=== PATIENT | female | born 1985 | race Two or more races ===

== ENCOUNTER 2018-09-25 09:28 | Emergency (ER) | payer MEDICAID ==
[~2018-09-25] VITALS: Ht 165.1 cm; Wt 68.0 kg
[2018-09-25 10:15] VITALS: BP 143/98
== END 2018-09-25 14:25 | disposition home or self-care (01) ==
LOC: ER 09:28
DX: M25.511 Pain in right shoulder (principal); F17.210 Nicotine dependence, cigarettes, uncomplicated; Z76.0 Encounter for issue of repeat prescription; Z88.6 Allergy status to analgesic agent

== ENCOUNTER 2018-10-04 08:50 | Emergency (ER) | payer MEDICAID ==
[~2018-10-04] VITALS: Ht 165.1 cm; Wt 86.2 kg
[2018-10-04 08:56] VITALS: BP 144/84
[2018-10-04] MEDS ORDERED: KETOROLAC TROMETH 60MG/2ML VIAL IM ONE (09:45)
== END 2018-10-04 10:21 | disposition home or self-care (01) ==
LOC: ER 08:50
DX: M75.101 Unspecified rotator cuff tear or rupture of right shoulder, not specified as traumatic (principal); F17.210 Nicotine dependence, cigarettes, uncomplicated; Z76.0 Encounter for issue of repeat prescription; Z88.6 Allergy status to analgesic agent
CPT/HCPCS: 96372; 99283; J1885

== ENCOUNTER 2018-11-18 11:21 | Emergency (ER) | payer MEDICAID ==
[~2018-11-18] VITALS: Ht 165.1 cm; Wt 83.9 kg
[2018-11-18 11:35] VITALS: BP 132/96
== END 2018-11-18 12:08 | disposition home or self-care (01) ==
LOC: ER 11:26
DX: F20.9 Schizophrenia, unspecified (principal); F17.210 Nicotine dependence, cigarettes, uncomplicated; Z88.6 Allergy status to analgesic agent; Z76.0 Encounter for issue of repeat prescription

== ENCOUNTER 2018-11-29 17:19 | Emergency (ER) | payer MEDICAID ==
[~2018-11-29] VITALS: Ht 165.1 cm; Wt 83.9 kg
[2018-11-29 18:54] VITALS: BP 149/90
[2018-11-29] MEDS ORDERED: DexAMETHasone SOD PHOS 10MG/1ML VIAL INJ IM ONE (19:00)
[2018-11-29] MEDS ORDERED: HYDROcodone-ACET 5/325MG TAB PO ONE (19:00)
== END 2018-11-29 19:25 | disposition home or self-care (01) ==
LOC: ER 17:19
DX: J30.9 Allergic rhinitis, unspecified (principal); J06.9 Acute upper respiratory infection, unspecified; F17.210 Nicotine dependence, cigarettes, uncomplicated; Z88.8 Allergy status to other drugs, medicaments and biological substances
CPT/HCPCS: 96372; 99283; J1100

== ENCOUNTER 2019-01-13 14:42 | Emergency (ER) | payer MEDICAID ==
[~2019-01-13] VITALS: Ht 165.1 cm; Wt 90.7 kg
[2019-01-13 16:12] VITALS: BP 122/8
== END 2019-01-13 18:02 | disposition home or self-care (01) ==
LOC: ER 14:47
DX: S43.421A Sprain of right rotator cuff capsule, initial encounter (principal); F17.210 Nicotine dependence, cigarettes, uncomplicated; X58.XXXA Exposure to other specified factors, initial encounter; Y93.89 Activity, other specified; Y99.8 Other external cause status; Y92.89 Other specified places as the place of occurrence of the external cause

== ENCOUNTER 2020-03-25 10:27 | Emergency (ER) | payer MEDICAID ==
[~2020-03-25] VITALS: Ht 165.1 cm; Wt 89.8 kg
[2020-03-25 10:38] VITALS: BP 112/68
== END 2020-03-25 11:04 | disposition home or self-care (01) ==
LOC: ER 10:27
DX: S61.411D Laceration without foreign body of right hand, subsequent encounter (principal); X58.XXXD Exposure to other specified factors, subsequent encounter

== ENCOUNTER 2022-04-02 06:55 | Emergency (ER) | payer MEDICAID, OTHER ==
[~2022-04-02] VITALS: Ht 165.1 cm; Wt 90.9 kg
[2022-04-02 06:55] VITALS: BP 148/90
[2022-04-02 12:13] LABS: Amphetamine Screen, Urine POSITIVE (NEGATIVE); Barbiturate Scree,Urine NEGATIVE (NEGATIVE); Benzodiazephine Screen, Urine NEGATIVE (NEGATIVE); Cannabinoid Screen, Urine POSITIVE (NEGATIVE); Cocaine Screen, Urine NEGATIVE (NEGATIVE); Opiate Scree,Urine NEGATIVE (NEGATIVE); Phencyclidine Screen, Urine NEGATIVE (NEGATIVE)
== END 2022-04-02 15:30 | disposition left against medical advice (07) ==
LOC: EDBD 06:55 → EDUNIT# 06:55 → ER 06:55
DX: F41.9 Anxiety disorder, unspecified (principal); F10.10 Alcohol abuse, uncomplicated; Y90.3 Blood alcohol level of 60-79 mg/100 ml; Z79.1 Long term (current) use of non-steroidal anti-inflammatories (NSAID)
CPT/HCPCS: 36415; 80307; 80320

== ENCOUNTER 2023-08-16 15:02 | Emergency (ER) | payer MEDICAID ==
[~2023-08-16] VITALS: Ht 165.1 cm; Wt 91.0 kg
[2023-08-16 16:01] LABS: Urine Bacteria None Seen /hpf (None Seen)
[2023-08-16] MEDS: IPRATROPIUM BROM 0.5 MG/2.5ML INH SOL NEB ONE (16:19)
[2023-08-16] MEDS: ALBUTEROL SULF 2.5 MG/0.5ML(0.5%) NEB SOLN NEB ONE (16:19)
[2023-08-16 16:26] LABS: Urine Blood 1+ /uL (Negative); Urine Clarity Clear (Clear); Urine Color Yellow (Yellow); Urine Mucus FEW (None Seen); Urine Protein, UAD TRACE (Negative); Urine Specific Gravity 1.036 (1.001-1.035); Urine Urobilinogen Normal (Negative); Urine WBC 6 /hpf (0 - 5)
[2023-08-16 16:47] LABS: Basophils # (auto) 0.1 10 ^3/uL (0-0.2); Basophils % (auto) 0.7 % (0.0-2.0); Eosinophils # (auto) 0.2 10 ^3/uL (0-0.8); Hemoglobin 12.9 g/dL (12.2-16.2); Lymphocytes # (auto) 2.7 10 ^3/uL (0.4-5.4); Lymphocytes % (auto) 24.7 % (10.0-50.0); Mean Corpuscular Hemoglobin 29.1 pg (28.0-32.0); Mean Corpuscular Volume 85.4 fL (80.0-100.0); Monocytes # (auto) 0.7 10 ^3/uL (0-1.3); Monocytes % (auto) 6.5 % (0.0-12.0); Neutrophils # (auto) 7.2 10 ^3/uL (1.6-8.6); Neutrophils % (auto) 66.1 % (37.0-80.0); Red Blood Cells 4.44 10^6/uL (4.0-5.20); Red Cell Distribution Width 12.9 % (11.8-14.3); White Blood Cell 10.9 10^3/uL (4.4-10.8)
[2023-08-16] MEDS: ALPRAZolam 0.5 MG TAB PO ONE (17:05)
[2023-08-16] MEDS: DexAMETHasone SOD PHOS 10MG/1ML VIAL INJ IM ONE (17:05)
[2023-08-16 17:06] LABS: Alanine Aminotransferase 19 U/L (7-40); Albumin 4.3 g/dL (3.2-4.8); Alkaline Phosphatase 89 U/L (46-116); Anion Gap 11 (5-15); Aspartate Aminotransferase 22 U/L (13-40); BUN/Creatinine Ratio 15.5 (10.0-20.0); Bilirubin, Total 0.3 mg/dL (0.2-1.0); Blood Urea Nitrogen 13 mg/dL (9-23); Calcium 9.8 mg/dL (8.5-10.1); Carbon Dioxide 22 mmol/L (20-30); Chloride 109 mmol/L (98-107); Glucose 113 mg/dL (74-106); Sodium 142 mmol/L (136-145); Total Protein 6.4 g/dL (5.7-8.2)
[2023-08-16 17:13] VITALS: BP 128/77; PULSE 81; RESP 16; TEMP 97.9; O2SAT 99
[2023-08-16 17:14] LABS: CRP High Sensitivity 1.61 mg/dL (<1.0)
[2023-08-16] MEDS ORDERED: ALPR1TAB2 PO (18:05)
[2023-08-16] MEDS ORDERED: LORA10CA PO (18:59)
== END 2023-08-16 19:00 | disposition home or self-care (01) ==
LOC: ER 15:02
DX: F41.9 Anxiety disorder, unspecified (principal); R06.02 Shortness of breath; Z32.02 Encounter for pregnancy test, result negative; Z88.6 Allergy status to analgesic agent
CPT/HCPCS: 36415; 71046; 80053; 81001; 81025; 83880; 85025; 86141; 94640; 96372; 99284; J1100; J7644

== ENCOUNTER 2024-09-18 18:15 | Emergency (ER) | payer MEDICAID ==
[~2024-09-18] VITALS: Ht 165.1 cm; Wt 109.2 kg
[~2024-09-18 18:15] MED LIST: ALPR1TAB2 PO; LORA10CA PO
[2024-09-18 19:50] VITALS: TEMP 98.2
--- NOTE | 2024-09-18 20:27 | ED.PDOC ---
Back pain HPI HPI Comments PT CAME IN WITH A CC OF LEFT WRIST AND NECK PAIN S/P MECHANICAL FALL X 3 DAYS AGO WHILE WALKING OUTSIDE. PT DENEIS LOC, ABLE TO PICK SELF UP. POSITIVE PULSES PRESENT BILATERALLY. NO BUMPS BRUISES OR ABBRASIONS NOTED.. DENIES NUMBNESS, WEAKNESS, OR ANY OTHER KNOWN INJURY. 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 Family History Family History: Unobtainable Social History Smoker: Unobtainable Alcohol: Unobtainable Drugs: Unobtainable Lives In: Unobtainable Constitutional: denies: chills, diaphoresis, fatigue, fever, malaise, sweats, weakness, others EENTM: denies: blurred vision, double vision, ear bleeding, ear discharge, ear drainage, ear pain, ear ringing, eye pain, eye redness, hearing loss, mouth pain, mouth swelling, nasal discharge, nose bleeding, nose congestion, nose pain, photophobia, tearing, throat pain, throat swelling, voice changes, others Respiratory: denies: cough, hemoptysis, orthopnea, SOB at rest, shortness of breath, SOB with excertion, stridor, wheezing, others Cardiovascular: denies: chest pain, dizzy spells, diaphoresis, Dyspnea on exertion, edema, irregular heart beat, left arm pain, lightheadedness, palpitations, PND, syncope, others Gastrointestinal: denies: abdomen distended, abdominal pain, blood streaked bowels, constipated, diarrhea, dysphagia, difficulty swallowing, hematemesis, melena, nausea, poor appetite, poor fluid intake, rectal bleeding, rectal pain, vomiting, others Genitourinary: denies: abnormal vagina bleeding, burning, dyspareunia, dysuria, flank pain, frequency, hematuria, incontinence, pain, , vagina discharge, urgency, others Neurological: denies: dizziness, fainting, headache, left sided numbness, left sided weakness, numbness, paresthesia, pre-existing deficit, right sided numb ness, right sided weakness, seizure, speech problems, tingling, tremors, weakness, others Musculoskeletal: reports: joint pain, joint swelling, neck pain; denies: back pain, gout, muscle pain, muscle stiffness, others Integumetry: reports: bruises; denies: change in color, change in hair/nails, dryness, laceration, lesions, lumps, rash, wounds, others Allergic/Immunocompromised: denies: Difficulty Healing, Frequent Infections, Hives, Itching, others Hematologic/Lymphatic: denies: anemia, blood clots, easy bleeding, easy bruising, swollen glands, others Endocrine: denies: excessive hunger, excessive sweating, excessive thirst, excessive urination, flushing, intolerance to cold, intolerance to heat, unexplained weight gain, unexplained weight loss, others Psychiatric: denies: anxiety, bipolar disorder, depression, hopeless, panic disorder, schizophrenia, sleepless, suicidal, others Physical Exam General Appearance: No Apparent Distress, Normal HEENT: Pharynx Normal Neck: Limited Range of Motion, Tender Lateral Respiratory: Chest Non-Tender, Lungs Clear, No Accessory Muscle Use, No Respiratory Distress, Normal Breath Sounds Cardiovascular: No Murmur, Normal Peripheral Pulses, Regular Rate/Rhythm Breast Exam: Deferred Gastrointestinal: Non Tender, Soft Genitalia: Deferred Pelvic: Deferred Rectal: Deferred Extremities: Normal capillary refill, Normal inspection, Normal range of motion, Non-tender, No pedal edema Musculoskeletal : Location: Left Extremity Location: Wrist (MODERATE TENDERNESS ON PALPATION ANTERIOR AND POSTERIOR WRIST WITH NOTED BRUISING WITHOUT LESIONS LACERATIONS OR ABRASIONS. STRENGTH SENSORY MOTION INTACT POSITIVE RADIAL PULSE) Apperance: Normal Neurologic: Alert, fibrous plasterer II-XII nml as Tested, No Motor Deficits, Normal Affect, Normal Mood, No Sensory Deficits Cerebellar Function: Normal Reflexes: Normal Skin: Dry, Normal Color, Warm Lymphatic: No Adenopathy Was a procedure done? Was a procedure done?: No Back Pain Differential Dx Differential Diagnosis: Fracture, Musculoskeletal Pain, Strain X-Ray, Labs, Meds, VS Vital Signs Date Time Temp Pulse Resp B/P (MAP) Pulse Ox O2 Delivery O2 Flow Rate FiO2 09/18/24 20:59 90 16 122/68 (86) 99 09/18/24 19:50 111 16 96 Room Air 09/18/24 19:50 98.2 111 16 118/65 (82) 96 98.2 09/18/24 19:05 98.2 111 16 118/65 (82) 96 98.2 Lab Test 09/18/24 19:56 Range/Units Urine Test Negative Negative Current Medications Medications (Trade) Dose Ordered Sig/Kiran Route Start Time Stop Time Status Last Admin Acetaminophen/ Hydrocodone Bitart ([place] 10/325MG Tab) 1 tab ONCE ONCE PO 09/18/24 21:15 09/18/24 21:16 DC 09/18/24 21:30 X-Ray, Labs, Meds, VS Comment CT neck cervical shows no acute fractures, subluxations, or osseous lesions does show no curvature of the lordotic spine, likely secondary to spasm. X-ray left wrist shows no acute fracture, dislocation, or osseous lesions. Likely neck and wrist strain. Patient placed in velcro wrist splint advised to use for comfort advised on rice advised [id number] Tylenol or Motrin as needed for the pain per labeled dosing instructions advised to follow up with her PCP in 2 days consider further imaging or physical therapy if symptoms persist. Return precautions given patient indicates understanding agrees with discharge plan of care Time of 1ST Reevaluation: 19:25 Reevaluation 1ST: Unchanged Time of 2ND Reevaluation: 22:02 Reevaluation 2ND: Improved Patient Education/Counseling: Diagnosis, Treatment, Prognosis, Need For Follow Up Family Education/Counseling: No Family Present Departure 1 Departure Time of Disposition: 22:02 Impression: Primary Impression: Whiplash injury, acute Qualified Codes: S13.4XXA - Sprain of ligaments of cervical spine, initial encounter Additional Impression: Muscle strain of left wrist Qualified Codes: S66.912A - Strain of unspecified muscle, fascia and tendon at wrist and hand level, left hand, initial encounter Disposition: HOME / SELF CARE / HOMELESS Condition: Stable Discharged With: Self Critical Care Note Critical Care Time?: No Stability Stability form required: CHAD Gutierrez September 18, 2024 20:27
[2024-09-18 20:59] VITALS: BP 122/68; PULSE 90; RESP 16; O2SAT 99
--- NOTE | 2024-09-18 21:10 | DVH ---
EXAM: XY L WRIST 3+ VIEW XRAY DATE OF SERVICE: 09/18/2024 08:49 PM ORDERING PHYSICIAN: CHAD ESQUIVEL REASON FOR EXAM: s/p fall wrist pain TECHNIQUE: COMPARISON: None FINDINGS: IMPRESSION: No osseous or joint abnormality identified with no fracture or dislocation. Joint spaces are normal.
[2024-09-18] MEDS: HYDROcodone-ACET 10/325MG TAB PO ONE (21:30)
--- NOTE | 2024-09-18 21:54 | DVH ---
EXAM: CT CERVICAL WITHOUT CONTRAST INDICATION: STATUS POST FALL EXAM DATE: 09/18/2024 09:19 PM COMPARISON: None TECHNIQUE: Multiple axial CT images of the cervical spine were obtained using bone algorithm. Axial a nd coronal reformatting was done. Bone and soft tissue windows were reviewed. Radiation Dose Information: CT Dose: CTDI volume is 25.54 mGy. Dose-length product is 663.07 mGy*cm FINDINGS: The cervical alignment is intact. No acute cervical spine fracture is identified. The vertebral body heights are intact. No suspicious osseous lesions are identified. No significant degenerative changes are identified. There is no prevertebral soft tissue swelling. IMPRESSION: 1. No evidence of acute cervical spine fracture or traumatic malalignment. 2. Reversal of the normal cervical lordotic curve may be secondary to patient positioning or muscle s pasm. All CT scans at this medical facility are performed using dose modulation techniques as appropriate t o a performed exam including the following: Automated exposure control was utilized; adjustment of th e MA and/or KV according to patient size; and use of iterative reconstruction technique. HS:Y HS:Y
== END 2024-09-18 22:12 | disposition home or self-care (01) ==
LOC: ER 18:15
DX: S66.812A Strain of other specified muscles, fascia and tendons at wrist and hand level, left hand, initial encounter (principal); S13.4XXA Sprain of ligaments of cervical spine, initial encounter; F17.200 Nicotine dependence, unspecified, uncomplicated; Z88.6 Allergy status to analgesic agent; W18.39XA Other fall on same level, initial encounter; Y93.01 Activity, walking, marching and hiking; Y92.89 Other specified places as the place of occurrence of the external cause; Y99.8 Other external cause status
CPT/HCPCS: 29125; 72125; 73110; 81025

== ENCOUNTER 2025-02-28 09:38 | Emergency (ER) | payer MEDICAID ==
[~2025-02-28] VITALS: Ht 165.1 cm; Wt 109.3 kg
[2025-02-28 09:40] VITALS: BP 102/57; PULSE 64; RESP 18; TEMP 98.8; O2SAT 95
--- NOTE | 2025-02-28 10:56 | ED.PDOC ---
Musculoskeletal HPI Comments 39 y/o F, with no prior medical history presents to the ED for CC of lower extremity swelling. Patient states, she has had bilateral feet redness and swelling x5days. Patient reports, feet to be warm to the touch with associated pruritus. Patient denies shortness of breath, chest pain, trauma, injury, or recent fall. No other symptoms or modifying factors are present at this time. Chief Complaint: Extremity Swelling Time Seen by MD: 10:20 Primary Care Provider: NONE Reviewed Notes: Nurses Notes, Medications, Allergies Allergies: Coded Allergies: NO KNOWN ALLERGIES (Unverified , 02/28/25) Home Meds Active Scripts Alprazolam (Xanax) 1 Mg Tab, 1 TAB PO Q8HP PRN, #20 TAB Prov:DENISE CARPENTER PAC 08/17/23 Loratadine (Claritin) 10 Mg Cap, 10 MG PO DAILY for 14 Days, #14 CAP Prov:DENISE CARPENTER PAC 08/16/23 Information Source: Patient Mode of Arrival: Ambulatory Location: Bilateral Extremity Location: Foot Timing: Days Prehospital treatment: None Severity: Moderate Able to Move Extremity: Yes Bear Weight: Fully Pain: Moderate Mechanism: Spontaneous Circumstances: Spontaneous Onset of Symptoms: Spontaneous Symptoms: Swelling, Pain DVT Risk Factors: NONE Associated signs and symptoms: Swelling Past Medical History PAST MEDICAL HISTORY: Unobtainable Surgical History: Unobtainable 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 Family History Family History: Unobtainable Social History Smoker: Other (vape) Alcohol: Unobtainable Drugs: Unobtainable Lives In: Unobtainable Constitutional: denies: chills, diaphoresis, fatigue, fever, malaise, sweats, weakness, others EENTM: denies: blurred vision, double vision, ear bleeding, ear discharge, ear drainage, ear pain, ear ringing, eye pain, eye redness, hearing loss, mouth pain, mouth swelling, nasal discharge, nose bleeding, nose congestion, nose pain, photophobia, tearing, throat pain, throat swelling, voice changes, others Respiratory: denies: cough, hemoptysis, orthopnea, SOB at rest, shortness of breath, SOB with excertion, stridor, wheezing, others Cardiovascular: denies: chest pain, dizzy spells, diaphoresis, Dyspnea on exertion, edema, irregular heart beat, left arm pain, lightheadedness, palpitations, PND, syncope, others Gastrointestinal: denies: abdomen distended, abdominal pain, blood streaked bowels, constipated, diarrhea, dysphagia, difficulty swallowing, hematemesis, melena, nausea, poor appetite, poor fluid intake, rectal bleeding, rectal pain, vomiting, others Genitourinary: denies: abnormal vagina bleeding, burning, dyspareunia, dysuria, flank pain, frequency, hematuria, incontinence, pain, , vagina discharge, urgency, others Neurological: denies: dizziness, fainting, headache, left sided numbness, left sided weakness, numbness, paresthesia, pre-existing deficit, right sided numbness, right sided weakness, seizure, speech problems, tingling, tremors, weakness, others Musculoskeletal: reports: others (bilateral feet swelling); denies: back pain, gout, joint pain, joint swelling, muscle pain, muscle stiffness, neck pain Integumetry: denies: bruises, change in color, change in hair/nails, dryness, laceration, lesions, lumps, rash, wounds, others Allergic/Immunocompromised: denies: Difficulty Healing, Frequent Infections, Hives, Itching, others Hematologic/Lymphatic: denies: anemia, blood clots, easy bleeding, easy bruising, swollen glands, others Endocrine: denies: excessive hunger, excessive sweating, excessive thirst, excessive urination, flushing, intolerance to cold, intolerance to heat, unexplained weight gain, unexplained weight loss, others Psychiatric: denies: anxiety, bipolar disorder, depression, hopeless, panic disorder, schizophrenia, sleepless, suicidal, others All Other Systems: Reviewed and Negative Physical Exam General Appearance: Moderate Distress HEENT: Normal ENT Inspection, Pharynx Normal, TMs Normal Neck: Full Range of Motion, Non-Tender, Normal, Normal Inspection Respiratory: Chest Non-Tender, Lungs Clear, No Accessory Muscle Use, No Respiratory Distress, Normal Breath Sounds Cardiovascular: No Edema, No JVD, No Murmur, No Gallop, Normal Peripheral Pulses, Regular Rate/Rhythm Breast Exam: Deferred Gastrointestinal: No Organomegaly, Non Tender, No Pulsatile Mass, Normal Bowel Sounds, Soft Genitalia: Deferred Pelvic: Deferred Rectal: Deferred Extremities: Swelling (Bilateral lower extremity) Musculoskeletal : Apperance: Normal 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 Was a procedure done?: No Differential Diagnosis EXT Differential Diagnosis: CHF, Gout X-Ray, Labs, Meds, VS Vital Signs Date Time Temp Pulse Resp B/P (MAP) Pulse Ox O2 Delivery O2 Flow Rate FiO2 02/28/25 09:40 98.8 64 18 102/57 95 98.8 Patient alert. Vitals stable. Came in because of bilateral lower extremity swelling. Answering questions. Possible CHF. Was given Lasix. She is on methadone. Explained to the patient. Continue monitoring. [place] [id number] Ph: [phone] DIAGNOSTIC IMAGING Diagnostic Imaging Report : [id number] Signed PATIENT: KAYLA GRANDA ACCT: [id number] UNIT: [id number] : 1985 LOC: ER ROOM / BED: / AGE / SEX: 39 / F ADM STATUS: REG ER SERVICE 1134 ORDERING PHYSICIAN: JUDY BOURNE MD PROCEDURE(s): CXRP - CHEST PORTABLE REASON: cough ORDER NUMBER(s): [id number], ACCESSION NUMBER(s): [id number] XY CHEST PORTABLE, HISTORY: cough COMPARISON: XY CHEST TWO VIEWS ROUTINE on DOS: 08/16/23 XY CHEST TWO VIEWS ROUTINE on DOS: 08/16/23 TECHNICAL DATA: 1 view of the chest was obtained. FINDINGS: Lines and tubes: None Cardiomediastinal silhouette: normal Pulmonary vasculature: normal Lung expansion: normal Lung airspace: normal Lung interstitium: normal Pleura: normal Pneumothorax: no Bones: Unremarkable Other: no IMPRESSION: No acute intrathoracic abnormality. ATED BY: HADLEY IBARRA MD DICTATED DATE/TIME: 02/28/251156 SIGNED BY: HADLEY IBARRA MD SIGNED DATE/TIME: 02/28/258 CC: Time of 1ST Reevaluation: 10:50 Reevaluation 1ST: Unchanged Patient Education/Counseling: Diagnosis, Treatment Family Education/Counseling: No Family Present Departure 1 Departure Time of Disposition: 12:00 Impression: Primary Impression: CHF (congestive heart failure) Qualified Codes: I50.43 - Acute on chronic combined systolic (congestive) and diastolic (congestive) heart failure Disposition: ADMITTED INPATIENT Admit to: Med Surg Condition: Guarded Critical Care Note Critical Care Time?: Yes (90 min-critical care time only) Stability Stability form required: No Heart Score Heart Score: Heart Score Response (Comments) Value History N/A 0 EKG N/A 0 Age N/A 0 Risk Factors N/A 0 Troponin N/A 0 Total 0 I personally scribed for JUDY BOURNE MD ([email or web address]) on 02/28/25 at 10:56. Electronically submitted by India Hall ([email or web address]). I personally scribed for JUDY BOURNE MD ([email or web address]) on 02/28/25 at 12:01. Electronically submitted by India Hall ([email or web address]). JUDY BOURNE MD Feb 28, 2025 10:56
[2025-02-28] MEDS ORDERED: FUROSEMIDE 40 MG/4 ML VIAL IV ONE (12:00)
--- NOTE | 2025-02-28 12:00 | DVH ---
XY CHEST PORTABLE, HISTORY: cough COMPARISON: XY CHEST TWO VIEWS ROUTINE on DOS: 08/16/23 XY CHEST TWO VIEWS ROUTINE on DOS: 08/16/23 TECHNICAL DATA: 1 view of the chest was obtained. FINDINGS: Lines and tubes: None Cardiomediastinal silhouette: normal Pulmonary vasculature: normal Lung expansion: normal Lung airspace: normal Lung interstitium: normal Pleura: normal Pneumothorax: no Bones: Unremarkable Other: no IMPRESSION: No acute intrathoracic abnormality.
== END 2025-02-28 12:40 | disposition left against medical advice (07) ==
LOC: ER 09:38
DX: I50.9 Heart failure, unspecified (principal); F17.290 Nicotine dependence, other tobacco product, uncomplicated; Z79.899 Other long term (current) drug therapy
CPT/HCPCS: 71045

== ENCOUNTER 2025-03-02 08:43 | Emergency (ER) | payer MEDICAID ==
[~2025-03-02] VITALS: Ht 165.1 cm; Wt 107.7 kg
--- NOTE | 2025-03-02 09:41 | ED.PDOC ---
Musculoskeletal HPI Comments 39 year old female presents to the ED with a chief complaint of bilateral feet swelling onset 6 days. Patient states she has been experiencing bilateral feet swelling for the past 6 days, noticed swelling is radiating up her legs. She was recently seen at [facility], 02/28/25, was diagnosed with CHF. Patient states symptoms have not improved, pain is worsening, returned to ED. Denies shortness of breath, dizziness, fever, chills, nausea, vomiting, diarrhea, numbness/tingling. No other symptoms or modifying factors present at this time. Chief Complaint: Lower Extremity Time Seen by MD: 09:35 Primary Care Provider: NONE Reviewed Notes: Medications, Allergies Allergies: Coded Allergies: NO KNOWN ALLERGIES (Unverified , 02/28/25) Home Meds Active Scripts Alprazolam (Xanax) 1 Mg Tab, 1 TAB PO Q8HP PRN, #20 TAB Prov:DENISE CARPENTER PAC 08/17/23 Loratadine (Claritin) 10 Mg Cap, 10 MG PO DAILY for 14 Days, #14 CAP Prov:DENISE CARPENTER PAC 08/16/23 Information Source: Patient Mode of Arrival: Ambulatory Location: Bilateral Extremity Location: Foot, Leg Timing: Days Prehospital treatment: None Severity: Moderate Able to Move Extremity: Yes Bear Weight: Limited Pain: Moderate Mechanism: Spontaneous Circumstances: Spontaneous Onset of Symptoms: Spontaneous Symptoms: Swelling, Pain Associated signs and symptoms: Swelling Past Medical History PAST MEDICAL HISTORY: Denies Surgical History: Denies all surgeries 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 REEL 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: No Pertinent GLUE REEL OPERATOR History Family History Family History: Unknown Social History Smoker: Other Alcohol: Denies ETOH Use Drugs: Denies Drug Use Lives In: Home, Unobtainable Constitutional: denies: chills, diaphoresis, fatigue, fever, malaise, sweats, weakness, others EENTM: denies: blurred vision, double vision, ear bleeding, ear discharge, ear drainage, ear pain, ear ringing, eye pain, eye redness, hearing loss, mouth pain, mouth swelling, nasal discharge, nose bleeding, nose congestion, nose pain, photophobia, tearing, throat pain, throat swelling, voice changes, others Respiratory: denies: cough, hemoptysis, orthopnea, SOB at rest, shortness of breath, SOB with excertion, stridor, wheezing, others Cardiovascular: denies: chest pain, dizzy spells, diaphoresis, Dyspnea on exertion, edema, irregular heart beat, left arm pain, lightheadedness, palpitations, PND, syncope, others Gastrointestinal: denies: abdomen distended, abdominal pain, blood streaked bowels, constipated, diarrhea, dysphagia, difficulty swallowing, hematemesis, melena, nausea, poor appetite, poor fluid intake, rectal bleeding, rectal pain, vomiting, others Genitourinary: denies: abnormal vagina bleeding, burning, dyspareunia, dysuria, flank pain, frequency, hematuria, incontinence, pain, , vagina discharge, urgency, others Neurological: denies: dizziness, fainting, headache, left sided numbness, left sided weakness, numbness, paresthesia, pre-existing deficit, right sided numbness, right sided weakness, seizure, speech problems, tingling, tremors, weakness, others Musculoskeletal: reports: others (Bilateral leg and feet swelling, pain); denies: back pain, gout, joint pain, joint swelling, muscle pain, muscle stiffness, neck pain Integumetry: denies: bruises, change in color, change in hair/nails, dryness, laceration, lesions, lumps, rash, wounds, others Allergic/Immunocompromised: denies: Difficulty Healing, Frequent Infections, Hives, Itching, others Hematologic/Lymphatic: denies: anemia, blood clots, easy bleeding, easy bruising, swollen glands, others Endocrine: denies: excessive hunger, excessive sweating, excessive thirst, excessive urination, flushing, intolerance to cold, intolerance to heat, unexplained weight gain, unexplained weight loss, others Psychiatric: denies: anxiety, bipolar disorder, depression, hopeless, panic disorder, schizophrenia, sleepless, suicidal, others All Other Systems: Reviewed and Negative Physical Exam General Appearance: No Apparent Distress, Normal HEENT: Normal ENT Inspection, Pharynx Normal, TMs Normal Neck: Full Range of Motion, Non-Tender, Normal, Normal Inspection Respiratory: Chest Non-Tender, Lungs Clear, No Accessory Muscle Use, No Respiratory Distress, Normal Breath Sounds Cardiovascular: No Edema, No JVD, No Murmur, No Gallop, Normal Peripheral Pulses, Regular Rate/Rhythm Breast Exam: Deferred Gastrointestinal: No Organomegaly, Non Tender, No Pulsatile Mass, Normal Bowel Sounds, Soft Genitalia: Deferred Pelvic: Deferred Rectal: Deferred Extremities: Pedal edema Musculoskeletal : Apperance: Normal Neurologic: Alert, 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 Was a procedure done?: No Differential Diagnosis EXT Differential Diagnosis: CHF, Deep Vein Thrombosis, Arthritis X-Ray, Labs, Meds, VS Vital Signs Date Time Temp Pulse Resp B/P (MAP) Pulse Ox O2 Delivery O2 Flow Rate FiO2 03/02/25 12:37 64 03/02/25 11:45 57 03/02/25 11:35 97.3 83 16 117/65 (82) 91 97.3 03/02/25 09:44 Room Air* 0 21 03/02/25 09:40 97.7 64 16 108/53 (71) 96 97.7 03/02/25 08:44 97.7 78 18 125/70 98 97.7 Lab Test 03/02/25 13:07 03/02/25 11:44 03/02/25 10:57 03/02/25 09:59 Range/Units Troponin I High Sensitivity < 3 L < 3 L < 3 L </=34 ng/L Urine Color Light-yellow Yellow Urine Clarity Clear Clear Urine pH 7.0 5.0-9.0 Urine Specific [place] 1.022 1.001-1.035 Urine Protein Negative Negative Urine Ketones Negative Negative Urine Blood Negative Negative /uL Urine Nitrite Negative Negative Urine Bilirubin Negative Negative Urine Urobilinogen Normal Negative mg/dL Urine Leukocyte Esterase Trace Negative /uL Urine RBC 2 0 - 4 /hpf Urine Microscopic WBC 4 0-5 /HPF Urine Squamous Epithelial Cells Few <5 /hpf Urine Bacteria None seen None Seen /hpf Urine Mucus Few None Seen Urine Glucose Normal Normal mg/dL Urine Test Negative Negative White Blood Count 8.2 4.4-10.8 10^3/uL Red Blood Count 4.77 4.0-5.20 10^6/uL Hemoglobin 12.8 12.2-16.2 g/dL Hematocrit 39.9 36.0-46.0 % Mean Corpuscular Volume 83.8 80.0-100.0 fL Mean Corpuscular Hemoglobin 26.8 L 28.0-32.0 pg Mean Corpuscular Hemoglobin Concent 32.0 32.0-36.0 g/dL Red Cell Distribution Width 13.8 11.8-14.3 % Platelet Count 280 140-450 10^3/uL Mean Platelet Volume 9.4 6.9-10.8 fL Neutrophils (%) (Auto) 57.5 37.0-80.0 % Lymphocytes (%) (Auto) 29.5 10.0-50.0 % Monocytes (%) (Auto) 9.9 0.0-12.0 % Eosinophils (%) (Auto) 2.3 0.0-7.0 % Basophils (%) (Auto) 0.8 0.0-2.0 % Neutrophils # (Auto) 4.7 1.6-8.6 10 ^3/uL Lymphocytes # (Auto) 2.4 0.4-5.4 10 ^3/uL Monocytes # (Auto) 0.8 0-1.3 10 ^3/uL Eosinophils # (Auto) 0.2 0-0.8 10 ^3/uL Basophils # (Auto) 0.1 0-0.2 10 ^3/uL Nucleated Red Blood Cells 0.0 % Sodium Level 142 136-145 mmol/L Potassium Level 4.1 3.5-5.1 mmol/L Chloride Level 104 98-107 mmol/L Carbon Dioxide Level 31 20-31 mmol/L Anion Gap 7 5-15 Blood Urea Nitrogen 6 L 9-23 mg/dL Creatinine 0.66 0.550-1.02 mg/dL Glomerular Filtration Rate Calc 116 >90 mL/min BUN/Creatinine Ratio 9.1 L 10.0-20.0 Serum Glucose 90 74-106 mg/dL Calcium Level 8.8 8.7-10.4 mg/dL B-Type Natriuretic Peptide 47.41 0-100 pg/mL Time of 1ST Reevaluation: 10:05 Reevaluation 1ST: Unchanged Patient Education/Counseling: Diagnosis, Treatment, Prognosis Family Education/Counseling: No Family Present Departure 1 Departure Time of Disposition: 14:14 (Concern for heart failure given worsening lower extremity edema. Patient also report worsening weakness. We will admit patient for further workup and expert consultation) Impression: Primary Impression: Suspected congestive heart failure Additional Impressions: Lower extremity edema Generalized weakness Disposition: 09 ADMITTED INPATIENT Admit to: [facility] Condition: Guarded Critical Care Note Critical Care Time?: No Stability Stability form required: No Heart Score Heart Score: Heart Score Response (Comments) Value History N/A 0 EKG N/A 0 Age N/A 0 Risk Factors N/A 0 Troponin N/A 0 Total 0 I personally scribed for MELIZA DANIELSON MD ([email or web address]) on 03/02/25 at 09:40. Electronically submitted by Gabby Galdamez ([email or web address]). MELIZA DANIELSON MD Mar 02, 2025 09:40
[2025-03-02 10:25] LABS: Chloride 104 mmol/L (98-107); Potassium 4.1 mmol/L (3.5-5.1); Sodium 142 mmol/L (136-145)
[2025-03-02 10:26] LABS: Anion Gap 7 (5-15); Calcium 8.8 mg/dL (8.7-10.4)
[2025-03-02 10:27] LABS: Carbon Dioxide 31 mmol/L (20-31); Hematocrit 39.9 % (36.0-46.0); Hemoglobin 12.8 g/dL (12.2-16.2); Mean Corpuscular Hemoglobin 26.8 pg (28.0-32.0); Mean Corpuscular Volume 83.8 fL (80.0-100.0); Nucleated Red Blood Cells % 0.0 %
[2025-03-02 10:31] LABS: BUN/Creatinine Ratio 9.1 (10.0-20.0); Blood Urea Nitrogen 6 mg/dL (9-23); Glucose 90 mg/dL (74-106)
[2025-03-02 12:00] LABS: Urine Protein, UAD Negative (Negative)
--- NOTE | 2025-03-02 12:39 | ECG ---
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
--- NOTE | 2025-03-02 12:39 | ECG ---
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
--- NOTE | 2025-03-02 13:13 | DVH ---
EXAM: XY CHEST PORTABLE Indication: sob Technique: Single frontal view of the chest was obtained Comparison: XY CHEST PORTABLE on DOS: 02/28/25, XY CHEST TWO VIEWS ROUTINE on DOS: 08/16/23 FINDINGS: Lines and Tubes: None Lungs: No focal consolidation. Pleura: No effusion. No pneumothorax. Cardiomediastinal contours: Unremarkable Bones: No acute osseous abnormality. IMPRESSION: No acute cardiopulmonary disease.
[2025-03-02 16:15] VITALS: BP 114/62; PULSE 93; RESP 26; TEMP 98.5; O2SAT 94
--- NOTE | 2025-03-03 07:54 | ECG ---
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
== END 2025-03-02 18:45 | disposition left against medical advice (07) ==
LOC: ER 08:45
DX: R60.0 Localized edema (principal); R53.1 Weakness; R06.02 Shortness of breath; F17.200 Nicotine dependence, unspecified, uncomplicated
CPT/HCPCS: 36415; 71045; 80048; 81001; 81025; 83880; 84484; 85025; 93005